=== PATIENT | female | born 1950 | race Caucasian/White ===

== ENCOUNTER 2017-01-24 16:12 | Emergency (ER) | payer MEDICARE, BC ==
[~2017-01-24] VITALS: Ht 160 cm; Wt 60.0 kg
[~2017-01-24 16:12] MED LIST: GABA300C3 PO
[2017-01-24 16:17] VITALS: BP 131/70; PULSE 75; RESP 16; TEMP 98.7; O2SAT 97
--- NOTE | 2017-01-24 16:31 | PD ---
HPI . Left third toe injury Chief Complaint: Injury Time Seen by Provider: 16:30 Travel History International Travel<30 days: No Contact w/Intl Traveler<30days: No Traveled to known affect area: No History of Present Illness HPI 66-year-old female with history of hypertension and fibromyalgia here with complaints of left third toe pain. Patient was reaching for objects in her fridge when a shelf fell down and some type of food products that are on her left foot. She is now complaining of pain in her left third toe. She also has pain in the midfoot. She tells me right now the pain is negligible and she took Aleve at home. She denies any radiation of pain. She denies any head injury or loss of consciousness. She has no other complaints. PFSH Past Medical History Hx Anticoagulant Therapy: No Anemia: Yes Arthritis: Yes Cardiovascular Problems: Yes (HTN) Congestive Heart Failure: Yes Cerebrovascular Accident: Yes (TIA) Diabetes: No Diminished Hearing: No Fibromyalgia: Yes Gastrointestinal Disorders: Yes Genitourinary: No Headaches: Yes Musculoskeletal: Yes Neurologic: Yes (FIBROMYLASIA) Reproductive: No Respiratory: No Pancreatitis: Yes Ulcer: Yes (GASTRIC) ?: Not Menopausal: Yes : 2 Para: 2 Past Surgical History Abdominal Surgery: Yes (ABDOMINAL LAPROSCOPY 1978) Gynecologic Surgery: Yes (BILATERAL BREAST LUMPECTOMY) Oral Surgery: Yes Other Surgery: Yes (BILATERAL BREASTS LUMPS REMOVED ) Social History Alcohol Use: Yes (2 DRINKS A DAY) Tobacco Use: No (QUIT 2005) Substance Use: No Allergies-Medications (Allergen,Severity, Reaction): Coded Allergies: Sulfa (Verified Allergy, Mild, RASH, 01/24/17) Reported Meds & Prescriptions Reported Meds & Active Scripts Active Review of Systems General / Constitutional: No: Fever Eyes: No: Visual changes HENT: No: Headaches Cardiovascular: No: Chest Pain or Discomfort Respiratory: No: Shortness of Breath Gastrointestinal: No: Abdominal Pain Genitourinary: No: Dysuria Musculoskeletal: Positive: Pain (left foot) Skin: No Rash Neurologic: No: Weakness Psychiatric: No: Depression Endocrine: No: Polydipsia Hematologic/Lymphatic: No: Easy Bruising Physical Exam Narrative GENERAL: AAO x 3, no acute distress, Well-nourished, well-developed patient. SKIN: Warm and dry. No visible rashes. Left third toe with ecchymosis HEAD: Normocephalic and atraumatic. EYES: No scleral icterus. No injection or drainage. ENT: No nasal drainage noted. Mucous membranes pink. Airway patent. NECK: Supple, trachea midline. No JVD. CARDIOVASCULAR: Regular rate and rhythm without murmurs, gallops, or rubs. RESPIRATORY: Breath sounds equal bilaterally. No accessory muscle use. No rhonchi or rales. GASTROINTESTINAL: Abdomen soft, non-tender, nondistended. EXTREMITIES: No cyanosis or edema. Significantly decreased range of motion in the left third toe. Tenderness over the mid dorsum of the foot (cuneiform bones ). BACK: Nontender without obvious deformity. No CVA tenderness. PSYCH: AAO x 3, normal affect. Data Data Last Documented VS Vital Signs Date Time Temp Pulse Resp B/P Pulse Ox O2 Delivery O2 Flow Rate FiO2 01/24/17 16:17 98.7 75 16 131/70 97 Orders Foot, Complete ([id number]) (01/24/17 16:31) MDM Medical Decision Making Medical Screen Exam Complete: Yes Emergency Medical Condition: Yes Medical Record Reviewed: Yes Differential Diagnosis Toe fracture, foot fracture, less likely dislocation Narrative Course 66-year-old female with history of hypertension and fibromyalgia here with complaints of left third toe pain. Patient was reaching for objects in her fridge when a shelf fell down and some type of food products that are on her left foot. She is now complaining of pain in her left third toe. She also has pain in the midfoot. She tells me right now the pain is negligible and she took Aleve at home. She denies any radiation of pain. She denies any head injury or loss of consciousness. She has no other complaints. Patient seen and examined. She does have significant ecchymosis and limited range of motion of the left third toe. I will go ahead and check a x-ray for fracture. She has no pain at the moment. Xray negative for acute fracture. WIll sammi tape and provide post op shoe for support. Ibuprofen at home. Patient verbalized understanding of instructions, questions were answered, and thanked me for their care. I advised them if their condition worsens, please return to the nearest emergency room for further care. Diagnosis Primary Impression: Contusion of toe of left foot Qualified Code: S90.122A - Contusion of lesser toe of left foot without damage to nail, initial encounter Patient Instructions: Contusion in Adults (ED), General Instructions Additional Instructions: Rest the affected area as much as possible. Ice this area for 15-20 minutes at a time. You can do this every hour or as much as tolerated. Keep this area compressed (jaqueline bandage) as tolerated. Sammi taped. Use ibuprofen as needed for pain and inflammation. If symptoms persist past 7-10 days, please follow up with your primary care provider or [facility]. Med/Other Pt SpecificInfo: No Change to Meds Disposition: 01 DISCHARGE HOME Condition: Stable Chelsea Grajeda Jan 24, 2017 16:30
--- NOTE | 2017-01-24 17:12 | RADHPO ---
EXAM DATE/TIME: 01/24/2017 16:50 [facility] COMPARISON: No previous studies available for comparison. INDICATIONS : Left foot pain. Patient states she dropped a heavy shelf on her foot last night. MEDICAL HISTORY : None. SURGICAL HISTORY : None. ENCOUNTER: Initial ACUITY: 2 days PAIN SCORE: 7/10 LOCATION: Left foot. FINDINGS: Previous left lobe. Bone alignment within normal limits. No evidence of fracture. CONCLUSION: No evidence of fracture. Jas Dodd MD on January 24, 2017 at 17:09 Board Certified Radiologist. This report was verified electronically.
== END 2017-01-24 17:31 | disposition home or self-care (01) ==
LOC: PHEFT 16:12
DX: S90.122A Contusion of left lesser toe(s) without damage to nail, initial encounter (principal); D64.9 Anemia, unspecified; I10 Essential (primary) hypertension; M79.7 Fibromyalgia; Z86.73 Personal history of transient ischemic attack (TIA), and cerebral infarction without residual deficits
CPT/HCPCS: 73630; 99283